=== PATIENT | male | born 1965 | race Caucasian/White ===

== ENCOUNTER 2017-12-09 11:40 | Emergency (ER) | payer OTHER ==
[2017-12-09 11:49] VITALS: BP 129/81
--- NOTE | 2017-12-09 12:02 | UC ---
Respiratory Complaint HPI - HPI Summary HPI Summary: Pt presents with weakness, dizziness, and a "low temperature". He tells me that for the past 3-4 weeks he has had a "cold" consisting of sinus congestion and dry cough. He had this at this time last year and saw his PCP and was eventually dx'd with PNA. Today he says he is feeling the same as he did last year. Over this last week he tells me that he had a fever of around 101F and has been taking tylenol. Yesterday he noted that his temperature was low at 95F and it was the same way this morning. Today when he woke he was sweating and felt dizzy - at which point he decided to come to urgent care. He tells me that on his way here, he felt like he "was going to pass out". Denies fever, chills, cough, SOB, chest pain/pressure, palpitations, abdominal pain, n/v/d/c. - History of Current Complaint Chief Complaint: UCRespiratory Stated Complaint: sore throat, and fever Time Seen by Provider: 12/09/17 12:01 Hx Obtained From: Patient Onset/Duration: Gradual Onset Pain Intensity: 0 - Allergies/Home Medications Allergies/Adverse Reactions: Allergies Allergy/AdvReac Type Severity Reaction Status Date / Time No Known Drug Allergies Allergy See Comment Verified 12/09/17 13:40 SEASONAL HAYFEVER Allergy Unknown Uncoded 12/09/17 11:49 Reaction Details PMH/Surg Hx/FS Hx/Imm Hx Previously Healthy: Yes - Surgical History Surgical History: Yes Surgery Procedure, Year, and Place: 2001 [place], [place]. TONSILLECTOMY - Family History Known Family History: Positive: None - Social History Occupation: Employed Full-time Lives: With Family Alcohol Use: Occasionally Substance Use Type: None Smoking Status (MU): Never Smoked Tobacco Have You Smoked in the Last Year: No Review of Systems Constitutional: Negative Skin: Negative Eyes: Negative ENT: Negative Respiratory: Negative Cardiovascular: Negative Gastrointestinal: Negative Genitourinary: Negative Neurovascular: Negative Musculoskeletal: Negative Neurological: Weakness, Other - Dizzy Psychological: Negative All Other Systems Reviewed And Are Negative: Yes Physical Exam Triage Information Reviewed: Yes Appearance: Well-Appearing, No Pain Distress, Well-Nourished Vital Signs: Initial Vital Signs Temp 95.2 F 12/09/17 11:45 Pulse 59 12/09/17 11:45 Resp 12 12/09/17 11:45 BP 129/81 12/09/17 11:45 Pulse Ox 100 12/09/17 11:45 Vital Signs Reviewed: Yes Eyes: Positive: Conjunctiva Clear, Other: - EOMI. PERRLA. Negative: Conjunctiva Inflamed, Discharge ENT: Positive: Hearing grossly normal, Pharynx normal, TMs normal, Uvula midline. Negative: Pharyngeal erythema, Nasal congestion, Nasal drainage, TM bulging, TM dull, TM red, Tonsillar swelling, Tonsillar exudate, Hoarse voice, Sinus tenderness Neck: Positive: Supple, Nontender, No Lymphadenopathy Respiratory: Positive: Chest non-tender, Lungs clear, Normal breath sounds, No respiratory distress, No accessory muscle use Cardiovascular: Positive: No Murmur, Brisk Capillary Refill, Bradycardia Abdomen Description: Positive: Nontender, No Organomegaly, Soft. Negative: CVA Tenderness (R), CVA Tenderness (L), Distended, Guarding Bowel Sounds: Positive: Present Neurological: Positive: Alert Psychological: Positive: Age Appropriate Behavior Skin: Negative: rashes UC Diagnostic Evaluation - Laboratory O2 Sat by Pulse Oximetry: 100 Respiratory Course/Dx - Course Course Of Treatment: EKG showed bradycardia at 43bpm with old inferior infarct and age undetermined anterior infarct. No acute ST changes. As read by Dr. Quick. POC glucose was 87. I spoke to the patient regarding his bradycardia and EKG abnormalities and advised him to seek further evaluation in the ED. Given his current state (dizziness and weakness), I advised him to go to the ED via ambulance. He was agreeable to this plan and left via ambulance in stable condition. - Differential Dx/Diagnosis Provider Diagnoses: Bradycardia. Weakness. Dizziness Discharge - Discharge Plan Condition: Stable Disposition: TRANS HIGHER LVL OF CARE FAC Referrals: Vladimir Meredith MD [Primary Care Provider] - Additional Instructions: To [facility] by ambulance
== END 2017-12-09 12:55 | disposition short-term general hospital (02) ==
LOC: UCEAST 11:40
DX: R42 Dizziness and giddiness (principal); R53.1 Weakness; R00.1 Bradycardia, unspecified
CPT/HCPCS: 81003; 87502; 93005; 99213; G0463

== ENCOUNTER 2017-12-09 13:16 | Observation (INO) | payer OTHER ==
[2017-12-09] MEDS ORDERED: NS 0.9% 1000 ML* 1,000 ML IV SCH ×2 (13:45→15:45)
[2017-12-09 13:50] LABS: ABS Basophils 0.1 10^3/ul (0-0.2); ABS Eosinophils 0.1 10^3/ul (0-0.6); ABS Lymphocytes 1.4 10^3/ul (1.0-4.8); ABS Monocytes 0.4 10^3/ul (0-0.8); ABS Neutrophils 2.8 10^3/ul (1.5-7.7); ABS Nucleated RBC 0 10^3/ul; Eosinophil % 2.8 % (0-6); Hematocrit 46 % (42-52); Hemoglobin 15.8 g/dl (14.0-18.0); Lymphocyte % 29.8 % (25-47); Mean Corpuscular HGB Conc 34 g/dl (31-36); Mean Corpuscular Hemoglobin 30 pg (27-31); Mean Corpuscular Volume 87 fL (80-94); Mean Platelet Volume 9 um3 (7.4-10.4); Nucleated Red Blood Cells % 0.2; Platelet Count 190 10^3/ul (150-450); Red Blood Count 5.29 10^6/ul (4.0-5.4); Red Cell Distribution Width 13 % (10.5-15); White Blood Count 4.9 10^3/ul (3.5-10.8)
[2017-12-09 14:07] LABS: EGFR Non-African American 74.4 (>60)
[2017-12-09 14:16] LABS: INR 0.86 (0.77-1.02)
--- NOTE | 2017-12-09 15:09 | RAD ---
INDICATION: Chest pain and bradycardia COMPARISON: Chest x-ray May 31, 2016 TECHNIQUE: Single AP portable view of the chest was obtained. FINDINGS: Image quality is compromised due to the relative inferiority of a portable chest x-ray. External cardiac defibrillator is are seen overlying the chest. The heart and mediastinum exhibit normal size and contour. The lungs are grossly clear. There is no evidence of a large pleural effusion. Visualized bones are normal for the patient's age. IMPRESSION: No radiographic evidence for acute cardiopulmonary abnormality on this portable chest x-ray.
--- NOTE | 2017-12-09 16:40 | ED ---
Ta Ken Jennifer, scribed for Amos Lester MD on 12/09/17 at 1331 . Complex/Multi-Sys Presentation - HPI Summary HPI Summary: The patient is a 52 year old male who was referred to the ED from Urgent Care with fever and chills that began one week ago. The patient reports that he was sick with a cold and cough that lasted about three weeks and then got better. Then, one week ago, he had fever and chills that lasted four days. He reports that this morning, he woke up at 10:00 and felt dizzy, sweaty, weak, lightheaded , and had a low temperature. The patient additionally complains that he has had on-off mild heart burn for the past week, but he denies chest pain. He denies ear pain, sore throat, swelling of the ankles, and sweatiness in the ED today. - History Of Current Complaint Chief Complaint: EDDysrhythmPalp Time Seen by Provider: 12/09/17 13:19 Hx Obtained From: Patient Onset/Duration: Lasting Weeks - Began one week ago, Still Present Severity Currently: Mild Severity Initially: Mild Associated Signs And Symptoms: Positive: Other - Dizziness, sweaty, weakness, lightheaded, lower temperature, mild heart burn, fever, chills, cold, cough. NEGATIVE: chest pain, ear pain, sore throat, swelling of ankles - Allergies/Home Medications Allergies/Adverse Reactions: Allergies Allergy/AdvReac Type Severity Reaction Status Date / Time No Known Drug Allergies Allergy See Comment Verified 12/09/17 13:40 SEASONAL HAYFEVER Allergy Unknown Uncoded 12/09/17 11:49 Reaction Details Home Medications: Home Medications NK [No Home Medications Reported] 12/09/17 [History Confirmed 12/09/17] PMH/Surg Hx/FS Hx/Imm Hx Cardiovascular History: Denies: Hx Hypertension Respiratory History: Denies: Hx Asthma, Hx Chronic Obstructive Pulmonary Disease (COPD) GI History: Reports: Hx Gastroesophageal Reflux Disease Sensory History: Reports: Hx Contacts or Glasses - GLASSES Denies: Hx Hearing Aid Opthamlomology History: Reports: Hx Contacts or Glasses - GLASSES Neurological History: Reports: Hx Migraine - 1-2x/yr - Surgical History Surgery Procedure, Year, and Place: [address] [place] [address]. TONSILLECTOMY Hx Anesthesia Reactions: Yes - SEDATION ONLY - NO PROBLEMS Infectious Disease History: Denies: Traveled Outside the [place] in Last 30 Days - Family History Known Family History: Negative: Diabetes - Social History Alcohol Use: Occasionally Substance Use Type: Reports: None Smoking Status (MU): Never Smoked Tobacco Have You Smoked in the Last Year: No Review of Systems Positive: Fever, Chills, Other - Cold, sweaty Negative: Sore Throat, Ear Ache Positive: Other - Mild heart burn. Negative: Chest Pain Positive: Cough Negative: Edema Neurological: Other - Dizzy, lightheaded Positive: Weakness All Other Systems Reviewed And Are Negative: Yes Physical Exam - Summary Physical Exam Summary: General: well-appearing, no pain distress Skin: warm, color reflects adequate perfusion, dry Head: normal Eyes: EOMI, JACQUE ENT: normal Neck: supple, nontender Respiratory: CTA, breath sounds present Cardiovascular: Bradycardic. Regular rhythm. Abdomen: soft, nontender Bowel: present Musculoskeletal: normal, strength/ROM intact Neurological: normal, sensory/motor intact, A&O x3 Psychological: affect/mood appropriate Triage Information Reviewed: Yes Vital Signs On Initial Exam: Initial Vitals Temp Pulse Resp BP Pulse Ox 95.7 F 46 20 130/68 100 12/09/17 13:27 12/09/17 13:27 12/09/17 13:27 12/09/17 13:27 12/09/17 13:27 Vital Signs Reviewed: Yes Diagnostics - Vital Signs Vital Signs Temp Pulse Resp BP Pulse Ox 12/09/17 15:20 97.7 F 12/09/17 15:00 57 15 121/72 100 12/09/17 14:30 50 11 115/65 100 12/09/17 14:04 51 14 121/76 100 12/09/17 14:03 51 15 99 12/09/17 13:27 95.7 F 46 20 130/68 100 - Laboratory Lab Results: Lab Results 12/09/17 12/09/17 12/09/17 Range/Units 13:40 13:40 13:40 WBC (3.5-10.8) 10^3/ul RBC (4.0-5.4) 10^6/ul Hgb (14.0-18.0) g/dl Hct (42-52) % MCV (80-94) fL MCH (27-31) pg MCHC (31-36) g/dl RDW (10.5-15) % Plt Count (150-450) 10^3/ul MPV (7.4-10.4) um3 Neut % (Auto) (38-83) % Lymph % (Auto) (25-47) % [place] % (Auto) (1-9) % Eos % (Auto) (0-6) % Baso % (Auto) (0-2) % Absolute Neuts (auto) (1.5-7.7) 10^3/ul Absolute Lymphs (auto) (1.0-4.8) 10^3/ul Absolute Monos (auto) (0-0.8) 10^3/ul Absolute Eos (auto) (0-0.6) 10^3/ul Absolute Basos (auto) (0-0.2) 10^3/ul Absolute Nucleated RBC 10^3/ul Nucleated RBC % INR (Anticoag Therapy) 0.86 (0.77-1.02) APTT 27.2 (26.0-36.3) seconds D-Dimer, Quantitative < 200 (Less Than 230) ng/mL Sodium 139 (133-145) mmol/L Potassium 4.1 (3.5-5.0) mmol/L Chloride 106 (101-111) mmol/L Carbon Dioxide 29 (22-32) mmol/L Anion Gap 4 (2-11) mmol/L BUN 20 (6-24) mg/dL Creatinine 1.04 (0.67-1.17) mg/dL Est GFR ( Amer) 95.7 (>60) Est GFR (Non-Af Amer) 74.4 (>60) BUN/Creatinine Ratio 19.2 (8-20) Glucose 97 (70-100) mg/dL Lactic Acid (0.5-2.0) mmol/L Calcium 9.6 (8.6-10.3) mg/dL Magnesium 2.1 (1.9-2.7) mg/dL Total Bilirubin 0.70 (0.2-1.0) mg/dL AST 17 (13-39) U/L ALT 17 (7-52) U/L Alkaline Phosphatase 71 (34-104) U/L Total Creatine Kinase 65 (10-223) U/L CK-MB (CK-2) 1.8 (0.6-6.3) ng/mL Troponin I 0.00 (<0.04) ng/mL C-Reactive Protein < 1.00 (< 5.00) mg/L B-Natriuretic Peptide 72 ( - 100) pg/mL Total Protein 7.6 (6.4-8.9) g/dL Albumin 4.3 (3.2-5.2) g/dL Globulin 3.3 (2-4) g/dL Albumin/Globulin Ratio 1.3 (1-3) Lipase 35 (11.0-82.0) U/L TSH 1.26 (0.34-5.60) mcIU/mL Free T4 Pending Free T3 Pending Cortisol 16.26 mcg/dL 12/09/17 12/09/17 Range/Units 13:40 13:40 WBC 4.9 (3.5-10.8) 10^3/ul RBC 5.29 (4.0-5.4) 10^6/ul Hgb 15.8 (14.0-18.0) g/dl Hct 46 (42-52) % MCV 87 (80-94) fL MCH 30 (27-31) pg MCHC 34 (31-36) g/dl RDW 13 (10.5-15) % Plt Count 190 (150-450) 10^3/ul MPV 9 (7.4-10.4) um3 Neut % (Auto) 57.4 (38-83) % Lymph % (Auto) 29.8 (25-47) % [place] % (Auto) 8.6 (1-9) % Eos % (Auto) 2.8 (0-6) % Baso % (Auto) 1.4 (0-2) % Absolute Neuts (auto) 2.8 (1.5-7.7) 10^3/ul Absolute Lymphs (auto) 1.4 (1.0-4.8) 10^3/ul Absolute Monos (auto) 0.4 (0-0.8) 10^3/ul Absolute Eos (auto) 0.1 (0-0.6) 10^3/ul Absolute Basos (auto) 0.1 (0-0.2) 10^3/ul Absolute Nucleated RBC 0 10^3/ul Nucleated RBC % 0.2 INR (Anticoag Therapy) (0.77-1.02) APTT (26.0-36.3) seconds D-Dimer, Quantitative (Less Than 230) ng/mL Sodium (133-145) mmol/L Potassium (3.5-5.0) mmol/L Chloride (101-111) mmol/L Carbon Dioxide (22-32) mmol/L Anion Gap (2-11) mmol/L BUN (6-24) mg/dL Creatinine (0.67-1.17) mg/dL Est GFR ( Amer) (>60) Est GFR (Non-Af Amer) (>60) BUN/Creatinine Ratio (8-20) Glucose (70-100) mg/dL Lactic Acid 0.8 (0.5-2.0) mmol/L Calcium (8.6-10.3) mg/dL Magnesium (1.9-2.7) mg/dL Total Bilirubin (0.2-1.0) mg/dL AST (13-39) U/L ALT (7-52) U/L Alkaline Phosphatase (34-104) U/L Total Creatine Kinase (10-223) U/L CK-MB (CK-2) (0.6-6.3) ng/mL Troponin I (<0.04) ng/mL C-Reactive Protein (< 5.00) mg/L B-Natriuretic Peptide ( - 100) pg/mL Total Protein (6.4-8.9) g/dL Albumin (3.2-5.2) g/dL Globulin (2-4) g/dL Albumin/Globulin Ratio (1-3) Lipase (11.0-82.0) U/L TSH (0.34-5.60) mcIU/mL Free T4 Free T3 Cortisol mcg/dL Result Diagrams: 12/09/17 13:40 12/09/17 13:40 Lab Statement: Any lab studies that have been ordered have been reviewed, and results considered in the medical decision making process. - Radiology CXR Xray Interpretation: No Acute Changes - No radiographic evidence for acute cardiopulmonary abnormality on this portable chest x-ray. Dr. Lester has reviewed this report. Radiology Interpretation Completed By: Radiologist - EKG 13:47 Cardiac Rate: Bradycardia EKG Rhythm: Sinus Bradycardia - 48 BPM EKG Interpretation: Prolonged QT interval, QTC is 587, Flipped T waves in V1, V2 , & lead III Complex Multi-Symp Course/Dx Course Of Treatment: BP noted and advised to follow up with PCP. Allergies noted. Medications reviewed. ADMIT HOSPITALIST. CRITICAL CARE TIME LESS THAN 30 MINUTES. - Diagnoses Provider Diagnoses: Blood pressure elevated without history of HTN, Bradycardia, Hypothermia, Near syncope Discharge - Discharge Plan Condition: Stable Disposition: ADMITTED TO [facility] documentation as recorded by the Ta mensah Jennifer accurately reflects the service I personally performed and the decisions made by me, Amos Lester MD.
[2017-12-09 20:15] LABS: Urine Appearance Clear; Urine Blood Negative (Negative); Urine Color Yellow; Urine Ketones Negative (Negative); Urine Protein Negative (Negative); Urine Specific Gravity 1.014 (1.010-1.030); Urine Urobilinogen Negative (Negative)
--- NOTE | 2017-12-09 21:11 | HP ---
CC: Dr. Meredith * HISTORY AND PHYSICAL: DATE OF ADMISSION: 12/09/17 PRIMARY CARE PROVIDER: Dr. Meredith. CHIEF COMPLAINT: Feeling weak, dizzy, and low body temperature. HISTORY OF PRESENT ILLNESS: Michi Wahsington is a 52-year-old male with no significant past medical history, who presented initially to [facility] complaining of low body temperature, chills, and dizziness. The patient stated that he had been having upper respiratory infection symptoms for the past 2 to 3 weeks. He had been having upper respiratory congestion and cough. He had improved somewhat, but then a week and a half ago got worse again. He has been having low- grade fevers. At that point, he went to see Dr. Meredith and azithromycin was prescribed. The patient stated that he took the standard Z- Jt and a fifth dose of his medication was finished yesterday. Yesterday, he started experiencing episodes of dizziness. He stated for several hours when he was at a computer at [employer], where he was working, he felt weak and dizzy and cold. He came into the home and he noted that his temperature was 95 degrees. He decided to have a hot cup of tea and went to bed. Today, in the morning, once again his temperature was low and he was experiencing episodes of dizziness again. When he came into [facility], his heart rate was in the 40s. He was directed to the ED for evaluation. Once again in the ED, his heart rate had been in the 40s and his temperature was 95 degrees. He is going to be placed on overnight observation on telemetry monitored bed due to hypothermia and bradycardia. PAST MEDICAL HISTORY: Pneumonia 2 years ago. The patient had tonsillectomy and adenoidectomy 5 years ago for tonsillar stone. CURRENT MEDICATIONS: None. The patient finished his last dose of azithromycin yesterday. ALLERGIES: No known drug allergies. FAMILY HISTORY: Reviewed and noncontributory. SOCIAL HISTORY: The patient denies any tobacco or drug use. He drinks alcohol occasionally. He works at [employer]. His surrogate decision maker is his sister, Rusty Oconnell. REVIEW OF SYSTEMS: Please see history of present illness. The patient had been afebrile for the past several days, but a week and a half ago, he had temperature up to 100 point some degrees. His cough had resolved. His bowel movements have been regular. He denies any abdominal pain. He has had no issues with urination. He denies any rashes or skin infections recently. He has not been traveling recently. The remaining 12 systems were reviewed with the patient and were otherwise negative. PHYSICAL EXAMINATION VITAL SIGNS: Blood pressure of 121/72, heart rate of 55 and regular, respiratory rate 15, oxygen saturation 100% on room air, and temperature of 97.7. Currently, Beth Hugger is applied. HEENT: Head atraumatic, normocephalic. Eyes: Pupils are equal, round, and reactive to light and accommodation. Oropharynx clear. Mucosa moist. NECK: Supple. No JVD, no bruits bilaterally. RESPIRATORY: Clear to auscultation bilaterally. CARDIOVASCULAR: Regular rate and rhythm. No murmur. ABDOMEN: Soft and nontender. Bowel sounds are present in all 4 quadrants. EXTREMITIES: There is no edema. Pulses +2 bilaterally. No clubbing or cyanosis. NEURO: Speech clear. Cranial nerves II through XII grossly intact. Motor strength is 5/5 bilaterally. PSYCHIATRIC: Oriented x3, but no evidence of anxiety or depression. SKIN: On evaluation of the patient's skin, no rashes or ecchymotic areas. DIAGNOSTIC STUDIES/LAB DATA: Showed sodium of 139, potassium 4.1, chloride 106 , carbon dioxide 29, BUN 20, creatinine 1.04. Liver function tests unremarkable. Lactic acid of 0.8. Brain natriuretic peptide was 72. C- reactive protein was below 1. TSH was 1.26. Cortisol level of 16.2. White blood cells 4.9, hemoglobin 15.8, hematocrit of 46, and platelets of 190. D-dimer below 200, PTT of 27, INR of 0.86. The patient's portable chest x-ray showed "no radiographic evidence of acute cardiopulmonary abnormality." The patient's EKG showed sinus bradycardia with a heart rate of 48 beats per minute with QTc of 587. There was also poor R-wave progression with possibility of old anteroseptal infarct. There was no old EKG available for comparison. ASSESSMENT AND PLAN: A 52-year-old male with history of recent azithromycin treatment and recent possible upper respiratory infection presents with bradycardia and hypothermia. His cortisol levels and thyroid hormone levels are unremarkable. Free T3 and free T4 levels are still pending at the time of dictation. At this point, due to his prolonged QTc, suspicion is that possibly azithromycin could cause this reaction. There was a case report last year about hypothermia and bradycardia due to azithromycin use. At this point, the patient is going to be placed on Beth Hugger, placed on telemetry monitored bed. I will obtain echocardiogram in the morning and follow up with troponins. I will consult Cardiology on this case. For DVT prophylaxis, the patient is at low risk and ambulation is going to be encouraged. TIME SPENT: Approximately 65 minutes was spent on admission of this patient, more than half that time was spent [id number] with the patient during the interview and physical exam. [id number]/[facility] #: [id number] DARREN
--- NOTE | 2017-12-10 13:19 | ECHO ---
Patient: WILLY DANILES [facility] Rec#: [id number] : 1965 Date: 12/10/2017 Age: 52y Height: 170.18 cm / 67.0 in Weight: 70.31 kg / 155.0 lbs Sex: M BSA: 1.81 Room#: 452 Admit Date#: 12/09/2017 Type: Inpatient Referring: Tanika Mahajan MD Reading: Caleb Harrison MD Drivers' Cash Clerk: Raeann Mora RDCS CC: Vladimir Meredith MD Transthoracic Echocardiogram Indication: Abnormal EKG BP: 103/62 HR: 62 Rhythm: NSR Findings History: No significant prior history. Technical Comments: The study quality is fair. Completed at 0900. Left Ventricle: The left ventricular chamber size is normal. There is no left ventricular hypertrophy. Global left ventricular wall motion and contractility are within normal limits. There is normal left ventricular systolic function. The estimated ejection fraction is 55-60%. Normal left ventricular diastolic filling is observed. Left Atrium: The left atrium is mildly dilated. Right Ventricle: Moderator Band present. The right ventricle is mildly dilated. The right ventricular global systolic function is normal. Right Atrium: The right atrial cavity size is normal. Aortic Valve: The aortic valve is trileaflet. The aortic valve leaflets are mildly thickened. There is mild aortic regurgitation. There is no evidence of aortic stenosis. Mitral Valve: The mitral valve leaflets are mildly thickened. There is trace to mild mitral regurgitation. There is no evidence of mitral stenosis. Tricuspid Valve: The tricuspid valve leaflets are normal. There is trace tricuspid regurgitation. The right ventricular systolic pressure is estimated at 21 mmHg. No pulmonary hypertension is noted. There is no tricuspid stenosis. Pulmonic Valve: The pulmonic valve appears normal. There is a trace pulmonic regurgitation. There is no pulmonic stenosis. Pericardium: There is no significant pericardial effusion. Aorta: There is no dilatation of the ascending aorta. There is no dilatation of the aortic arch. The aortic root is normal in size. Pulmonary Artery: The main pulmonary artery appears normal. Venous: The inferior vena cava appears normal in size. There is a greater than 50% respiratory change in the inferior vena cava dimension. Summary: There was not any prior study for comparison. Conclusions The left ventricular chamber size is normal. There is normal left ventricular systolic function. The estimated ejection fraction is 55-60%. The left atrium is mildly dilated. There is mild aortic regurgitation. There is trace to mild mitral regurgitation. There is trace tricuspid regurgitation. There is a trace pulmonic regurgitation. Measurements Name Value Normal Range RVIDd (AP) 2D 2.9 cm (0.9 - 2.6) RVDdMajor (2D) 4.7 cm (2.2 - 4.4) RAd ISD 4CH 3.8 cm (3.4 - 4.9) RA (A4C)W 4.1 cm (2.9 - 4.6) IVSd (2D) 1 cm (0.6 - 1) LVPWd (2D) 0.8 cm (0.6 - 1) LVIDd (2D) 4.5 cm (3.6 - 5.4) LVIDs (2D) 3.2 cm - LV FS (2D) 29 % (25 - 45) Aortic Annulus 1.6 cm (1.4 - 2.6) Ao root diameter (2D) 2.9 cm (2.1 - 3.5) Ascending Ao 2.9 cm (2.1 - 3.4) Aortic arch 2.4 cm (1.8 - 3.4) LA dimension (AP) 2D 3.8 cm (2.3 - 3.8) LAd ISD 4CH 4.9 cm (2.9 - 5.3) LA ISD 4CH W 4.3 cm (2.5 - 4.5) Name Value Normal Range LA ESV SP 4CH (A/L) 58 ml - LA ESV SP 2CH (A/L) 65 ml - LA ESV BP (A/L) 64 ml - LA ESV BP (A/L) index 35 ml/m2 - LA ESV SP 4CH (MOD) 49 ml - LA ESV SP 2CH (MOD) 61 ml - Name Value Normal Range MV E-wave Vmax 1.09 m/sec - MV deceleration time 191.5 msec - MV A-wave Vmax 0.62 m/sec - MV E:A ratio 1.74 ratio - LV septal e' Vmax 0.11 m/sec - LV lateral e' Vmax 0.1 m/sec - LV E:e' septal ratio 9.91 ratio - LV E:e' lateral ratio 10.9 ratio - Name Value Normal Range AV Vmax 1.3 m/sec - AV VTI 27.76 cm - AV peak gradient 6.09 mmHg - AV mean gradient 2.75 mmHg - LVOT Vmax 1.1 m/sec - LVOT VTI 26.5 cm - LVOT peak gradient 4.83 mmHg - LVOT mean gradient 2.59 mmHg - GEORGINA Vmax 0.78 m/sec - Name Value Normal Range TR Vmax 2.1 m/sec - TR peak gradient 18 mmHg - RAP 3 mmHg - RVSP 21 mmHg - IVC diameter 1.8 cm - Name Value Normal Range PV Vmax 0.77 m/sec - PV peak gradient 2.38 mmHg -
[2017-12-10 14:25] VITALS: BP 107/70
--- NOTE | 2017-12-11 10:31 | DS ---
CC: Dr. Meredith * DISCHARGE SUMMARY: DATE OF ADMISSION: 12/09/17. DATE OF DISCHARGE: 12/10/17. PRIMARY CARE PROVIDER: Dr. Meredith. DISCHARGE DIAGNOSES: Hypothermia, prolonged QT interval and bradycardia likely a side effect of azithromycin. MEDICATIONS AT DISCHARGE: None. LABORATORY DATA: Urinalysis was grossly unremarkable. The patient's troponins had been unremarkable throughout his hospital stay. C- reactive protein was below 1. TSH was 1.26, free T4 was 1.02, free T3 was 6.0 and cortisol 16.2. Patient's Brain natriuretic peptide was 72. Microbiology studies are still pending at the time of dictation and blood cultures obtained on admission are still pending. HOSPITALIZATION COURSE: Michi Washington is a 52-year-old male with no significant past medical history who had a recent upper respiratory infection and requested an antibiotic from his primary care provider. Patient was on his last day of azithromycin treatment when he developed episodes of dizziness and feeling cold as well as hypothermia. He presented to the hospital for evaluation a day later with a temperature of 95 degrees and heart rate in the 40s. His QT interval was prolonged per his ECG. At this point, his other workup included cortisol level, TSH level, C-reactive protein level. His laboratory values including liver function test, kidney functions, CBC were all within normal limits. At this point, the suspicion is that the patient likely developed prolonged QT interval and bradycardia due to azithromycin and subsequently hypothermia. Patient was observed on telemetry monitored bed with no further arrhythmias apart from occasional bradycardia. By the time of discharge, his heart rate is in the 50s but his QT interval is markedly increased and normalized. He is no longer hypothermic. As he is going to be discharged home, recommendation is to follow up with Dr. Meredith. Please note that at discharge his blood cultures are still pending. Please also note that patient had transthoracic echocardiogram obtained, which showed good EF at 65%, trace to mild mitral regurgitation and trace tricuspid regurgitation. There was normal left ventricular chamber visualized. PHYSICAL EXAMINATION AT DISCHARGE: It is unchanged from admission apart from patient's vitals at discharge include blood pressure 107/70, heart rate of 52 and regular, respiratory rate 19, oxygen saturation 97% on room air and temperature 97.7. Please note that this is a short summary of the patient's hospitalization. Please refer to further medical records for details. TIME SPENT: Approximately 30 minutes were spent on the patient's discharge. [id number]/[facility] #: [id number] DARREN
== END 2017-12-10 15:00 | disposition home or self-care (01) ==
LOC: ED 13:16 → MEDTELE 15:29
PROVIDERS: ADMIT Internal Medicine; ATTEND Internal Medicine
DX: T68.XXXA Hypothermia, initial encounter (principal); R00.1 Bradycardia, unspecified; R42 Dizziness and giddiness; R53.1 Weakness; R50.9 Fever, unspecified; Z87.19 Personal history of other diseases of the digestive system; R05 Cough; R03.0 Elevated blood-pressure reading, without diagnosis of hypertension; Z79.2 Long term (current) use of antibiotics
CPT/HCPCS: 36415; 71045; 80053; 81003; 82533; 82550; 82553; 83605; 83690; 83735; 83880; 84439; 84443; 84481; 84484; 85025; 85379; 85610; 85730; 86140; 87040; 93005; 93306; 96360; 96361; 99284; G0378

== ENCOUNTER 2019-02-03 14:57 | Emergency (ER) | payer OTHER ==
[2019-02-03 15:16] VITALS: BP 130/68
--- NOTE | 2019-02-03 15:28 | UC ---
Eye Complaint HPI - HPI Summary HPI Summary: Patient got a cleaning product called [employer] Second Clorox in his eyes about 2.5 hours [employer]. Exposure was minimal. Pt was cleaning the outside of his house. Sprayed the product and wind blew it back into his face. He states it was just a mist. He was wearing glasses at the time. Immediately went inside and flushed his eyes in the sink with water for about 5 minutes. Went back out and finished the job before getting into the shower and flushing his eyes for about 10 minutes. Came in because he is still experiencing mild eye irritation. No drainage. No visual disturbance, nausea, headache, fever. - History of Current Complaint Chief Complaint: UCEye Stated Complaint: EYE COMPLAINT Time Seen by Provider: 02/03/19 15:10 Hx Obtained From: Patient Onset/Duration: Sudden Onset, Lasting Hours, Still Present Timing: Constant Severity Initially: Mild Severity Currently: Mild Pain Intensity: 2 Pain Scale Used: 0-10 Numeric Aggravating Factor(s): Nothing Alleviating Factor(s): Nothing Associated Signs And Symptoms: Negative: Photophobia, Drainage (Clear), Vision Impairment Bilateral, Fever - Allergies/Home Medications Allergies/Adverse Reactions: Allergies Allergy/AdvReac Type Severity Reaction Status Date / Time azithromycin AdvReac Severe See Comment Verified 02/03/19 15:16 SEASONAL HAYFEVER Allergy Unknown Uncoded 02/03/19 15:16 Reaction Details PMH/Surg Hx/FS Hx/Imm Hx Previously Healthy: Yes - Surgical History Surgical History: Yes Surgery Procedure, Year, and Place: 2001 [place], [place]. TONSILLECTOMY - Family History Known Family History: Positive: None Negative: Diabetes - Social History Alcohol Use: Occasionally Substance Use Type: None Smoking Status (MU): Never Smoked Tobacco Have You Smoked in the Last Year: No Review of Systems All Other Systems Reviewed And Are Negative: Yes Constitutional: Positive: Negative Eyes: Positive: Other - BILATERAL EYE IRRITATION Cardiovascular: Positive: Negative Gastrointestinal: Positive: Negative Neurological: Positive: Negative Physical Exam Triage Information Reviewed: Yes Appearance: Well-Appearing, No Pain Distress, Well-Nourished Vital Signs: Initial Vital Signs Temp 97.1 F 02/03/19 15:12 Pulse 84 02/03/19 15:12 Resp 16 02/03/19 15:12 BP 130/68 02/03/19 15:12 Pulse Ox 97 03/31/19 15:12 Vital Signs Reviewed: Yes Eyes: Positive: Conjunctiva Clear, Other: - PERRL, EOMI, NO FB IDENTIFIED. NO FLUORESCEIN UPTAKE. Negative: Discharge ENT: Positive: Hearing grossly normal Neck: Positive: Supple Respiratory: Positive: No respiratory distress, No accessory muscle use Cardiovascular: Positive: Pulses Normal Abdomen Description: Positive: Soft Musculoskeletal: Positive: No Edema Neurological: Positive: Alert Psychological: Positive: Age Appropriate Behavior Skin: Negative: Rashes Eye Complaint Course/Dx - Course Course Of Treatment: POISON CONTROL CONTACTED. ADVISED EVALUATION FOR CORNEAL ABRASION AND IRRIGATION IN SHOWER FOR 20 MINUTES. NO CORNEAL ABRASION SEEN WITH FLUORESCEIN STAINING. OFFERED PATIENT IRRIGATION WITH [facility] HERE IN THE [facility] BUT HE DECLINES AND OPTS TO GO HOME AND CHASER TAR THE SHOWER FOR 20 MINUTES WHICH I THINK IS REASONABLE. SYMPTOMS SHOULD IMPROVE OVER THE NEXT DAY OR 2. ADVISED FOLLOW-UP WITH AN EYE DOCTOR IF SYMPTOMS ARE NOT IMPROVING EXPECTED. - Differential Dx/Diagnosis Provider Diagnosis: Chemical exposure of eye Discharge - Sign-Out/Discharge Documenting (check all that apply): Patient Departure All imaging exams completed and their final reports reviewed: No Studies - Discharge Plan Condition: Stable Disposition: HOME Patient Education Materials: [facility] (ED) Referrals: Vladimir Meredith MD [Primary Care Provider] - If Needed Louie Tobin MD [Medical Doctor] - If Needed Nacho Crawley MD [Medical Doctor] - If Needed Additional Instructions: NO CORNEAL ABRASIONS SEEN ON PHYSICAL EXAM TODAY. GO HOME AND CHASER TAR THE SHOWER FOR 20 MINUTES ALLOWING WATER TO FLUSH YOUR EYES. FOLLOW-UP WITH AN EYE DOCTOR IF YOU DEVELOP WORSENING EYE PAIN, VISUAL DISTURBANCE, NAUSEA, PURULENT EYE DRAINAGE OR ANY OTHER CONCERNING SYMPTOMS. - Billing Disposition and Condition Condition: STABLE Disposition: Home
[2019-02-03] MEDS ORDERED: Fluorescein Sodium TOPICAL* 1 MG TEST STRIP OPHTHALMIC ONE (15:30)
== END 2019-02-03 15:55 | disposition home or self-care (01) ==
LOC: UCEAST 14:57
DX: Z77.098 Contact with and (suspected) exposure to other hazardous, chiefly nonmedicinal, chemicals (principal); Z88.1 Allergy status to other antibiotic agents; Z91.09 Other allergy status, other than to drugs and biological substances
CPT/HCPCS: 99211; A9270-GY; G0463